=== PATIENT | female | born 1985 | race Caucasian/White ===

== ENCOUNTER 2017-07-11 05:32 | Emergency (ER) | payer OTHER ==
[~2017-07-11] VITALS: Ht 172.7 cm; Wt 79.8 kg
[2017-07-11 05:40] VITALS: BP 123/69
[2017-07-11] MEDS ORDERED: ERYT1OIN6 OP (05:46)
--- NOTE | 2017-07-11 05:46 | PHYS DOC ---
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 She is taking care. With colds, viruses and recent flu. She does not wear contact lenses and feels no pain in the eye she has had some drainage and mucous discharge along with a slight itching sensation. She denies any photophobia, recent trauma to her eye. She does admit she's had recent cold with runny nose mild sore throat and cough no ear pain no rash on her face. She wears corrective lenses and has had no change in visual acuity Review of Systems Review of Systems Constitutional: Denies fever or chills [] Eyes: Denies change in visual acuity, or pain but is having some slight redness and discharge HENT: She is having some nasal congestion and a mild sore throat with no change in voice Respiratory: She is having a mild cough and no shortness of breath Integument: Denies rash or skin lesions [] Neurologic: Denies headache, All other systems were reviewed and found to be within normal limits, except as documented in this note. Allergies Allergies Allergies Coded Allergies Type Severity Reaction Last Updated Verified ceftriaxone Allergy Unknown 04/20/14 No Physical Exam Physical Exam Vital signs recorded on the chart within normal limits Constitutional: Well developed, well nourished, no acute distress, non-toxic appearance. [] HENT: Normocephalic, atraumatic, bilateral external ears normal, oropharynx moist, no oral exudates but she does have mild erythema, nose normal. [] Eyes: PERRLA, EOMI, conjunctiva injected on the right, no. Limbic injection slight thin mucoid discharge. [] Neck: Normal range of motion, no tenderness, supple, no stridor. [] Cardiovascular:Heart rate regular rhythm, no murmur [] Lungs & Thorax: Bilateral breath sounds clear to auscultation [] Skin: Warm, dry, no erythema, no rash. [] Neurologic: Alert and oriented X 3, EKG EKG [] Radiology/Procedures Radiology/Procedures [] Course & Med Decision Making Course & Med Decision Making Pertinent Labs and Imaging studies reviewed. (See chart for details) Presents with URI-like symptoms and a discharge from her eye she does not wear contact lenses there is no risk for foreign body sensation, there is no evidence of trauma to her eye itself. 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 I'm okay with this as she is competent and only to return if her symptoms continue. She'll be prescribed erythromycin ointment and follow-up with her supervisor advice. []Visual acuity is recorded on chart unremarkable Dragon Disclaimer Dragon Disclaimer This electronic medical record was generated, in whole or in part, using a voice recognition dictation system. Departure Departure: Impression: Primary Impression: Conjunctivitis Disposition: HOME, SELF-CARE Condition: STABLE Referrals: CHRISTA EVERETT MD (PCP) Patient Instructions: Conjunctivitis (Viral and Bacterial) Additional Instructions: discharge: I've spoken with the patient and/or caregivers. I've explained the patient's condition, diagnosis and treatment plan based on information available to me at this time. I've answered the patient's and/or caregivers questions and addressed any concerns. The patient and/or caregivers have a good understanding the patient's diagnosis, condition and treatment plan as can be expected at this point. Vital signs have been stabilized. The patient's condition is stable for discharge from the emergency department. The patient will pursue further outpatient evaluation with her primary care provider or other designated consulting physician as outlined in the discharge instructions. Patient and/or caregivers are agreeable to this plan of care and follow-up instructions have been explained in detail. The patient and/or caregivers have received these instructions in written format and expressed understanding of these discharge instructions. The patient and her caregivers are aware that if any significant change in condition or worsening of symptoms should prompt him to immediately return to this of the closest emergency department. If an emergent department is not readily available I would encourage him to call 911. Scripts Erythromycin Base (Erythromycin) 1 Gm Oint...g. 1 GM OP TID for 5 Days, [facility] [place]: SIOMARA DE LA CRUZ MD 07/11/17 SIOMARA DE LA CRUZ MD Jul 11, 2017 05:46
[2017-07-11] MEDS ORDERED: ERYTHROMYCIN 0.5% OPHTH OINTMENT 1GM TUBE. ONE (05:48)
[2017-07-11] MEDS ORDERED: birth control pills (05:55)
[2017-07-11] MEDS ORDERED: ERYTHROMYCIN 0.5% OPHTH OINTMENT 1GM TUBE. OD ONE (06:00)
== END 2017-07-11 05:50 | disposition home or self-care (01) ==
LOC: ER 05:32
DX: H10.9 Unspecified conjunctivitis (principal); J02.9 Acute pharyngitis, unspecified; J45.909 Unspecified asthma, uncomplicated; Z88.8 Allergy status to other drugs, medicaments and biological substances
CPT/HCPCS: 99283

== ENCOUNTER → 2019-11-10 | Outpatient (CLI) | payer OTHER ==
[~2019-11-10] MED LIST: ERYT1OIN6 OP; birth control pills
== END | disposition home or self-care (01) ==
LOC: LAB 10:06
PROVIDERS: ATTEND Internal Medicine Cardiovascular Disease
DX: Z53.9 Procedure and treatment not carried out, unspecified reason (principal)
CPT/HCPCS: 87635

== ENCOUNTER → 2019-11-11 | Outpatient (CLI) | payer OTHER ==
[~2019-11-11] MED LIST changes: +HYDR25CA PO; +LORA10TA68 PO; +RIVA15TA PO
--- NOTE | 2019-11-13 17:59 | NUR ---
NURSING NOTE LAB RECEIVED CALL FROM DR NAIR TO NOTIFY PT OF POSITIVE COVID. NO PHONE NUMBER IN PT CHART. 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 PAT RIOS.
== END ==
LOC: LAB 22:40
PROVIDERS: ATTEND Internal Medicine Cardiovascular Disease
DX: R06.02 Shortness of breath (principal); Z20.828 Contact with and (suspected) exposure to other viral communicable diseases
CPT/HCPCS: 87635

== ENCOUNTER 2019-11-14 12:33 | Emergency (ER) | payer OTHER ==
[~2019-11-14] VITALS: Ht 172.7 cm; Wt 85.0 kg
[2019-11-14 12:33] VITALS: BP 134/72
[~2019-11-14 12:33] MED LIST changes: -HYDR25CA PO; -LORA10TA68 PO; -RIVA15TA PO
[2019-11-14] MEDS: IOHEXOL 350 MG/ML 100 ML VIAL. IV ONE (13:00)
[2019-11-14 13:08] LABS: CALCIUM 9.2 mg/dL (8.5-10.1); CREATININE 0.8 mg/dL (0.6-1.0); GFR 82.1; POTASSIUM 3.7 mmol/L (3.5-5.1)
[2019-11-14 13:09] LABS: BASO # 0.2 x10^3/uL (0.0-0.2); BASO % 3 % (0-3); EOS # 0.2 x10^3/uL (0.0-0.7); EOS % 2 % (0-3); HEMATOCRIT 43.3 % (36.0-47.0); HEMOGLOBIN 14.5 g/dL (12.0-15.5); LYMPH # 2.4 x10^3/uL (1.0-4.8); LYMPH % 28 % (24-48); MEAN CORPUSCULAR HEMOGLOBIN 29 pg (25-35); MEAN CORPUSCULAR HGB CONC 33 g/dL (31-37); MEAN CORPUSCULAR VOLUME 86 fL (79-100); MONO # 0.6 x10^3/uL (0.0-1.1); MONO % 7 % (0-9); NEUT # 5.2 x10^3uL (1.8-7.7); NEUT % 61 % (31-73); PLATELET COUNT 302 x10^3/uL (140-400); RED BLOOD COUNT 5.03 x10^6/uL (3.50-5.40); RED CELL DISTRIBUTION WIDTH 13.7 % (11.5-14.5); WHITE BLOOD COUNT 8.6 x10^3/uL (4.0-11.0)
[2019-11-14 13:13] LABS: ALBUMIN/GLOBULIN RATIO 1.1 (1.0-1.7); TOTAL BILIRUBIN 0.5 mg/dL (0.2-1.0); TOTAL PROTEIN 7.6 g/dL (6.4-8.2)
[2019-11-14] MEDS ORDERED: CONTRAST GIVEN MC PRN (13:15)
--- NOTE | 2019-11-14 13:57 | RAD ---
EXAM: CT Pulmonary Angiogram INDICATION: Shortness of breath. Covid 19 positive. TECHNIQUE: Multi-detector row images were acquired from the thoracic inlet through the upper abdomen with the use of IV contrast. Sagittal and coronal images were acquired from the transaxial data. MIP images of the pulmonary arteries were obtained. All CT scans performed at this facility utilize dose optimization techniques as appropriate to the exam, including the following: Automated exposure control and adjustment of the mA and/or KV according to patient size (this includes techniques or standardized protocols for targeted exams where dose is indication/reason for exam). IV CONTRAST: Administered COMPARISON: None FINDINGS: PULMONARY ARTERIES: No pulmonary emboli are identified. Contrast bolus timing is adequate. CARDIOVASCULAR: Unremarkable Aorta is normal caliber. MEDIASTINUM & LUDY: No adenopathy or masses. LUNGS: 3 mm peripheral right middle lobe pulmonary nodules (axial images 79 and 81 of series 4) are noted. Otherwise no pulmonary infiltrate, nodule, or other focal abnormality. PLEURAL SPACE: No pleural effusions or pneumothorax. OSSEOUS & SOFT TISSUE: Unremarkable ABDOMEN: The visualized portions of the upper abdomen are unremarkable. IMPRESSION: There are two sub-5 mm nodules in the right middle lobe. In a patient at low risk for malignancy, these do not require follow-up. In a patient at high risk for malignancy, an optional twelve-month follow-up CT could be pursued. Otherwise the exam is negative with no findings suspicious for pulmonary emboli. Electronically signed by: Shubham Suero MD (11/14/2019 1:54 PM) [id number]
--- NOTE | 2019-11-14 14:21 | PHYS DOC ---
Past History Past Medical History: Anxiety, Asthma Past Surgical History: No Surgical History Alcohol Use: Occasionally Drug Use: None General Adult EDM: Chief Complaint: SHORTNESS OF BREATH HPI: HPI: 34-year-old female presents with worsening shortness of breath and intermittent cough. The patient has confirmed COVID-19. 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 She has been having some upper chest tightness and is concerned about her worsening shortness of breath being a pulmonary embolus. She denies fever or chills. She has had no GI symptoms. Review of Systems: Review of Systems: Constitutional: Denies fever or chills Eyes: Denies change in visual acuity HENT: Denies nasal congestion or sore throat Respiratory: Cough with shortness of breath Cardiovascular: Chest pain GI: Denies abdominal pain, nausea, vomiting, bloody stools or diarrhea : Denies dysuria Musculoskeletal: Denies back pain or joint pain Integument: Denies rash Neurologic: Denies headache, focal weakness or sensory changes Endocrine: Denies polyuria or polydipsia Lymphatic: Denies swollen glands Psychiatric: Denies depression or anxiety Heart Score: Risk Factors: Risk Factors: DM, Current or recent (<one month) smoker, HTN, HLP, family history of CAD, obesity. Risk Scores: Score 0 - 3: 2.5% MACE over next 6 weeks - Discharge Home Score 4 - 6: 20.3% MACE over next 6 weeks - Admit for Clinical Observation Score 7 - 10: 72.7% MACE over next 6 weeks - Early Invasive Strategies Current Medications: Current Meds: Current Medications Medications (Trade) Dose Ordered Sig/Felix Start Time Stop Time Status Last Admin Dose Admin Info (Do NOT chart on this entry -- for MONITORING) 1 each PRN DAILY PRN 11/14/19 13:15 11/16/19 13:14 Iohexol (Omnipaque 350 Mg/ml) 100 ml 1X ONCE 11/14/19 13:00 11/14/19 13:01 DC Allergies: Allergies: Allergies Coded Allergies Type Severity Reaction Last Updated Verified ceftriaxone Allergy Unknown 04/20/14 No Physical Exam: PE: Constitutional: Well developed, well nourished, no acute distress, non-toxic appearance. [] HENT: Normocephalic, atraumatic, bilateral external ears normal, oropharynx moist, no oral exudates, nose normal. [] Eyes: PERRLA, EOMI, conjunctiva normal, no discharge. [] Neck: Normal range of motion, no tenderness, supple, no stridor. [] Cardiovascular: Heart rate regular rhythm, no murmur [] Lungs & Thorax: Bilateral breath sounds clear to auscultation [] Abdomen: Bowel sounds normal, soft, no tenderness, no masses, no pulsatile masses. [] Skin: Warm, dry, no erythema, no rash. [] Back: No tenderness, no CVA tenderness. [] Extremities: No tenderness, no cyanosis, no clubbing, ROM intact, no edema. [] Neurologic: Alert and oriented X 3, normal motor function, normal sensory function, no focal deficits noted. [] Psychologic: Affect normal, judgement normal, mood normal. [] Current Patient Data: Labs: Laboratory Tests Test 11/14/19 12:40 White Blood Count 8.6 x10^3/uL (4.0-11.0) Red Blood Count 5.03 x10^6/uL (3.50-5.40) Hemoglobin 14.5 g/dL (12.0-15.5) Hematocrit 43.3 % (36.0-47.0) Mean Corpuscular Volume 86 fL (79-100) Mean Corpuscular Hemoglobin 29 pg (25-35) Mean Corpuscular Hemoglobin Concent 33 g/dL (31-37) Red Cell Distribution Width 13.7 % (11.5-14.5) Platelet Count 302 x10^3/uL (140-400) Neutrophils (%) (Auto) 61 % (31-73) Lymphocytes (%) (Auto) 28 % (24-48) Monocytes (%) (Auto) 7 % (0-9) Eosinophils (%) (Auto) 2 % (0-3) Basophils (%) (Auto) 3 % (0-3) Neutrophils # (Auto) 5.2 x10^3uL (1.8-7.7) Lymphocytes # (Auto) 2.4 x10^3/uL (1.0-4.8) Monocytes # (Auto) 0.6 x10^3/uL (0.0-1.1) Eosinophils # (Auto) 0.2 x10^3/uL (0.0-0.7) Basophils # (Auto) 0.2 x10^3/uL (0.0-0.2) D-Dimer (Lorelei) 0.90 mg/L (0.00-0.50) H Sodium Level 139 mmol/L (136-145) Potassium Level 3.7 mmol/L (3.5-5.1) Chloride Level 103 mmol/L (98-107) Carbon Dioxide Level 26 mmol/L (21-32) Anion Gap 10 (6-14) Blood Urea Nitrogen 11 mg/dL (7-20) Creatinine 0.8 mg/dL (0.6-1.0) Estimated GFR (Cockcroft-Gault) 82.1 BUN/Creatinine Ratio 14 (6-20) Glucose Level 103 mg/dL (70-99) H Calcium Level 9.2 mg/dL (8.5-10.1) Total Bilirubin 0.5 mg/dL (0.2-1.0) Aspartate Amino Transferase (AST) 17 U/L (15-37) Alanine Aminotransferase (ALT) 33 U/L (14-59) Alkaline Phosphatase 50 U/L (46-116) Troponin I Quantitative < 0.017 ng/mL (0-0.055) Total Protein 7.6 g/dL (6.4-8.2) Albumin 4.0 g/dL (3.4-5.0) Albumin/Globulin Ratio 1.1 (1.0-1.7) Vital Signs: Vital Signs Date Time Temp Pulse Resp B/P (MAP) Pulse Ox O2 Delivery O2 Flow Rate FiO2 11/14/19 12:33 98.9 98 22 134/72 (92) 98 Room Air EKG: EKG: Sinus rhythm, rate 81, normal axis, no ST elevations or depressions, right bundle branch block. [] Radiology/Procedures: Radiology/Procedures: [] Impressions: EXAM: CT Pulmonary Angiogram INDICATION: Shortness of breath. Covid 19 positive. TECHNIQUE: Multi-detector row images were acquired from the thoracic inlet through the upper abdomen with the use of IV contrast. Sagittal and coronal images were acquired from the transaxial data. MIP images of the pulmonary arteries were obtained. All CT scans performed at this facility utilize dose optimization techniques as appropriate to the exam, including the following: Automated exposure control and adjustment of the mA and/or KV according to patient size (this includes techniques or standardized protocols for targeted exams where dose is indication/reason for exam). IV CONTRAST: Administered COMPARISON: None FINDINGS: PULMONARY ARTERIES: No pulmonary emboli are identified. Contrast bolus timing is adequate. CARDIOVASCULAR: Unremarkable Aorta is normal caliber. MEDIASTINUM & LUDY: No adenopathy or masses. LUNGS: 3 mm peripheral right middle lobe pulmonary nodules (axial images 79 and 81 of series 4) are noted. Otherwise no pulmonary infiltrate, nodule, or other focal abnormality. PLEURAL SPACE: No pleural effusions or pneumothorax. OSSEOUS & SOFT TISSUE: Unremarkable ABDOMEN: The visualized portions of the upper abdomen are unremarkable. IMPRESSION: There are two sub-5 mm nodules in the right middle lobe. In a patient at low risk for malignancy, these do not require follow-up. In a patient at high risk for malignancy, an optional twelve-month follow-up CT could be pursued. Otherwise the exam is negative with no findings suspicious for pulmonary emboli. Electronically signed by: Cesario Suero MD (11/14/2019 1:54 PM) [id number] DICTATED AND SIGNED BY: CESARIO SUERO MD DATE: 11/14/19 1354 CC: ALIRIO STARKS DO; PCP,NO ~ Course & Med Decision Making: Course & Med Decision Making The patient's labs are unremarkable except for an elevated d-dimer 0.9. Her CT of the chest shows 2 sub-5 mm nodules, but no pulmonary emboli. See official report for more details. The patient has COVID-19. She does not meet criteria for admission. She is stable for discharge at this time. Dragon Disclaimer: Dragkurtis Disclaimer: This electronic medical record was generated, in whole or in part, using a voice recognition dictation system. Departure Departure: Impression: Primary Impression: COVID-19 virus detected Disposition: HOME, SELF-CARE Condition: STABLE Referrals: PCP,NO (PCP) Patient Instructions: Shortness of Breath, [id number] ALIRIO STARKS DO November 14, 2019 14:21
--- NOTE | 2019-11-14 15:51 | EKG ---
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
== END 2019-11-14 14:35 | disposition home or self-care (01) ==
LOC: ER 12:33
DX: U07.1 COVID-19 (principal); R06.02 Shortness of breath; R05 Cough; R07.89 Other chest pain; F41.9 Anxiety disorder, unspecified; J45.909 Unspecified asthma, uncomplicated
CPT/HCPCS: 36415; 71275; 80053; 84484; 85025; 85379; 93005; 99285; Q9967

== ENCOUNTER 2019-11-18 23:43 | Emergency (ER) | payer OTHER ==
[~2019-11-18] VITALS: Ht 172.7 cm; Wt 85.0 kg
[2019-11-18 23:48] VITALS: BP 132/85
--- NOTE | 2019-11-19 00:30 | PHYS DOC ---
Past History Past Medical History: Anxiety, Asthma Past Surgical History: Other Additional Past Surgical Histo: wisdom teeth extraction Smoking: Non-smoker Alcohol Use: Occasionally Drug Use: None General Adult EDM: Chief Complaint: SHORTNESS OF BREATH HPI: HPI: 34-year-old female presents with report of increased shortness of breath with bilateral arm and leg tingling, dizziness, and burning feeling in her lungs. Patient tested positive for COVID-19 approximately 10 days ago. Patient does report history of anxiety. Denies fever and chills. Denies trauma. Denies leg swelling or calf tenderness. Reports her heart rate also increases when she gets up. Reports heart rate has gotten up to 120s. Reports home O2 sats have been consistently 96-98% on RA. Reports history of asthma but denies increased wheezing. Review of Systems: Review of Systems: Constitutional: Denies fever or chills Eyes: Denies redness or eye pain HENT: Denies nasal congestion or sore throat Respiratory: Reports cough and shortness of breath Cardiovascular: Denies chest pain or palpitations GI: Denies abdominal pain, nausea, or vomiting : Denies dysuria or hematuria Musculoskeletal: Denies back pain or joint pain Integument: Denies rash or skin lesions Neurologic: Denies headache, focal weakness or sensory changes; reports dizziness and numbness in bilateral upper and lower extremities Complete systems were reviewed and found to be within normal limits, except as documented in this note. Allergies: Allergies: Allergies Coded Allergies Type Severity Reaction Last Updated Verified ceftriaxone Allergy Unknown 04/20/14 No Physical Exam: PE: Constitutional: Well developed, well nourished, anxious, non-toxic appearance HENT: Normocephalic, atraumatic Eyes: Conjunctiva normal, no discharge Neck: Normal range of motion, no tenderness, supple Cardiovascular: Heart rate normal, regular rhythm Lungs & Thorax: No respiratory distress, equal chest rise and fall Abdomen: Soft, no tenderness Skin: Warm, dry, no erythema, no rash Back: No tenderness, no CVA tenderness Extremities: No tenderness, ROM intact, no edema Neurologic: Alert and oriented X 3, no focal deficits noted Psychologic: Affect anxious, judgment normal Current Patient Data: Vital Signs: Vital Signs Date Time Temp Pulse Resp B/P (MAP) Pulse Ox O2 Delivery O2 Flow Rate FiO2 11/18/19 23:48 97.8 88 20 132/85 (101) 98 Room Air EKG: EKG: [] Radiology/Procedures: Radiology/Procedures: PROCEDURE: CHEST AP ONLY CHEST AP ONLY Clinical History: Dyspnea Technique: AP view of the chest was obtained at 11/18/2019 11:56 PM. Comparison: None. Findings: The cardiomediastinal silhouette is normal. The pulmonary vasculature is normal. The lungs and pleural margins are clear. Impression: No evidence of an acute cardiopulmonary process. Electronically signed by: Dejuan Perales III, MD (11/19/2019 12:28 AM) [id number] Course & Med Decision Making: Course & Med Decision Making Pertinent Imaging studies reviewed. (See chart for details) Patient who has previously tested positive for COVID19 presents with report of shortness of air as well as dizziness, tachycardia, and tingling in bilateral upper extremities and legs. Patient does have a history of anxiety. Patient does appear anxious on physical exam. No respiratory distress appreciated. Telemetry monitoring appears normal. Oxygen saturation also normal on room air. Chest x-ray without acute process. Discussed patient that symptoms more likely COVID-19 combined with anxiety. No treatment currently recommended except supportive care. Patient asked if she felt she needed to be admitted for further observation. Patient declined. Patient stable for discharge with outpatient follow-up with PCP. A MDI spacer and Incentive Spirometer provided. Discussed findings and plan with patient, who acknowledges understanding and agreement. COVID-19 CRITERIA: The patient was evaluated during the global COVID-19 pandemic, and that diagnosis was suspected/considered upon their initial presentation. Their evaluation, treatment and testing was consistent with current guidelines for patients who present with complaints or symptoms that may be related to COVID-19. Monica Disclaimer: Monica Disclaimer: This electronic medical record was generated, in whole or in part, using a voice recognition dictation system. Departure Departure: Impression: Primary Impression: COVID-19 virus infection Additional Impression: Anxiety Disposition: 01 HOME, SELF-CARE Condition: STABLE Referrals: PCP,NO (PCP) Patient Instructions: Anxiety and Panic Attacks, [id number], Incentive Spirometer, Viral Syndrome COVID-19 Assessment COVID-19 Patient Risks: Age 65 or older: No Sign of co-morbidity: Yes Exp to person + for COVID: Yes Exp to PUI: No Travel from affected area: No Lower respiratory symptoms: Yes Fever: No Other: No PPE Use: Full PPE with N95 mask or PAPR: Yes SESAR PINEDA DO November 19, 2019 00:30
== END 2019-11-19 00:45 | disposition home or self-care (01) ==
LOC: ER 23:43
DX: U07.1 COVID-19 (principal); F41.9 Anxiety disorder, unspecified; J45.909 Unspecified asthma, uncomplicated; Z88.8 Allergy status to other drugs, medicaments and biological substances
CPT/HCPCS: 71045; 99283

== ENCOUNTER → 2019-12-05 | Outpatient (CLI) | payer OTHER ==
[2019-11-18 23:48] VITALS: BP 132/85
== END | disposition home or self-care (01) ==
LOC: LAB 15:04
PROVIDERS: ATTEND Internal Medicine Cardiovascular Disease
DX: R50.9 Fever, unspecified (principal); R05 Cough; R06.02 Shortness of breath; Z20.828 Contact with and (suspected) exposure to other viral communicable diseases
CPT/HCPCS: C9803; U0003

== ENCOUNTER → 2019-12-07 | Outpatient (CLI) | payer OTHER ==
[2019-11-18 23:48] VITALS: BP 132/85
== END | disposition home or self-care (01) ==
LOC: LAB 11:11
PROVIDERS: ATTEND Internal Medicine Cardiovascular Disease
DX: R05 Cough (principal); R06.02 Shortness of breath; Z20.828 Contact with and (suspected) exposure to other viral communicable diseases
CPT/HCPCS: C9803; U0003

== ENCOUNTER 2020-01-21 03:12 | Inpatient (IN) | payer OTHER ==
[~2020-01-21] VITALS: Ht 172.7 cm; Wt 88.3 kg
--- NOTE | 2020-01-21 03:15 | PHYS DOC ---
Past History Past Medical History: Anxiety, Asthma (KYLEIGH HICKS MD) Past Surgical History: Other Additional Past Surgical Histo: wisdom teeth extraction (KYLEIGH HICKS MD) Smoking: Non-smoker Alcohol Use: Occasionally Drug Use: None (KYLEIGH HICKS MD) General Adult HPI: HPI: ".. I ve been short of breath ever since my COVID.. but.. I was negative in November.. x 2,,.. and have been back to work... but still having a lot of wheezes... The MDI did help.. when I was treating the COVID.. usually do not have to have treatment for my Asthma...it however seem worse the last couple days... I ve been coughing a lot more at work tonight..some increase of my low lumbar back pain... just not feeling right... 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 Patient localized pain or discomfort in upper chest and Lumbar sacral area. Pt. has had increase of her cough that has been nonproductive. The patient recently recovered from COVID infection and has return to work. Pt. has hx. of Asthma and Anxiety previous to COVID diagnosis in November. Pt. did have findings of Rt. middle lobe nodules CT completed on November 13 ED evaluation. Pt. Denies any recent travel out side of [place] area. No specific ill contacts out side of work environment.. (KYLEIGH HICKS MD) Review of Systems: Review of Systems: Constitutional: Denies fever or chills Eyes: Denies change in visual acuity HENT: Denies nasal congestion or sore throat Respiratory: Complaints of cough and shortness of breath Cardiovascular: Complaints of chest pain GI: Denies abdominal pain, nausea, vomiting, bloody stools or diarrhea : Denies dysuria Musculoskeletal: Lumbar sacral back pain or joint pain Integument: Denies rash Neurologic: Denies headache, focal weakness or sensory changes Endocrine: Denies polyuria or polydipsia Lymphatic: Denies swollen glands Psychiatric: Complaints of anxiety (KYLEIGH HICKS MD) Heart Score: HEART Score for Chest Pain: HEART Score for Chest Pain Response (Comments) Value History Slighlty/Non-Suspicious 0 ECG Normal 0 Age < 45 0 Risk Factors 1 or 2 Risk Factors 1 Troponin < Normal Limit 0 Total 1 Risk Factors: Risk Factors: DM, Current or recent (<one month) smoker, HTN, HLP, family history of CAD, obesity. Risk Scores: Score 0 - 3: 2.5% MACE over next 6 weeks - Discharge Home Score 4 - 6: 20.3% MACE over next 6 weeks - Admit for Clinical Observation Score 7 - 10: 72.7% MACE over next 6 weeks - Early Invasive Strategies (KYLEIGH HICKS MD) Family History: Family History: Family history of diabetes, hypertension, family history of early onset of coronary artery disease, (KYLEIGH HICKS MD) Current Medications: Current Meds: See nursing for home meds (KYLEIGH HICKS MD) Allergies: Allergies: Allergies Coded Allergies Type Severity Reaction Last Updated Verified ceftriaxone Allergy Unknown 04/20/14 No (KYLEIGH HICKS MD) Physical Exam: PE: Constitutional: moderate acute emotional distress, non-toxic appearance. [] HENT: Normocephalic, atraumatic, bilateral external ears normal, oropharynx moist, no oral exudates, nose normal. [] Eyes: PERRLA, EOMI, conjunctiva normal, no discharge.glasses. Neck: Normal range of motion, no tenderness, supple, no stridor. [] Cardiovascular: Tachycardia heart rate regular rhythm, no murmur [] Lungs & Thorax: Bilateral breath sounds equal apex with scattered wheezes on auscultation [] Abdomen: Bowel sounds normal, soft, no tenderness, no masses, no pulsatile masses. [] Skin: Warm, dry, no erythema, no rash. [] Back: Lower lumbar tenderness, no CVA tenderness. [] Extremities: No tenderness, no cyanosis, no clubbing, ROM intact, no edema. No cording appreciated Neurologic: Alert and oriented X 3, normal motor function, normal sensory function, no focal deficits noted. [] Psychologic: Affect anxious, judgement normal, mood normal. [] (KYLEIGH HICKS MD) EKG: EKG: My interpretation EKG shows a sinus rhythm at 95 bpm. No findings of acute STEMI of contralateral changes. [] (KLYEIGH HICKS MD) Radiology/Procedures: Radiology/Procedures: [][address] [id number] IMAGING REPORT Signed PATIENT: TAMRA BUTLER ACCOUNT: [id number] : 1985 LOCATION: ER AGE: 34 SEX: F EXAM STATUS: REG ER ORD. PHYSICIAN: KYLEIGH HICKS MD REASON: DYSPNEA PROCEDURE: CHEST PA & LATERAL PA and lateral chest radiographs 01/21/2020 CLINICAL HISTORY: Shortness of breath. PA and lateral digital radiographs of the chest were obtained. Comparison study is dated 11/18/2019. The cardiac and mediastinal silhouettes are within normal limits in size and configuration. No acute pulmonary infiltrate is seen. No pleural effusion or pneumothorax is noted. Very mild S-shaped curvature of the thoracolumbar spine is seen. IMPRESSION: No acute abnormality is seen. Electronically signed by: Grady Palma MD (01/21/2020 6:47 AM) [id number] DICTATED AND SIGNED BY: GRADY PALMA MD DATE: 01/21/20 0647 CC: KYLEIGH HICKS MD; PCP,NO; ADRYAN SINGH DO ~ CT pending at shift change. (KYLEIGH HICKS MD) Radiology/Procedures: [address] [address] IMAGING REPORT Signed PATIENT: TAMRA BUTLER ACCOUNT: [id number] : 1985 LOCATION: ER AGE: 34 SEX: F EXAM STATUS: REG ER ORD. PHYSICIAN: KYLEIGH HICKS MD REASON: dyspnea, cough, hx. + COVID, Convert . Neg. May, OMNI 350, 75ml PROCEDURE: CT ANGIOGRAPHY CHEST CTA chest with and without contrast 01/21/2020. Reason for exam: Dyspnea and cough. Positive Covid test. Helical thin section images were made through the chest using an infusion of 75 mL Omnipaque 350. MIP reconstructions were performed. Exposure: One or more of the following individualized dose reduction techniques were utilized for this examination: 1. Automated exposure control 2. Adjustment of the mA and/or kV according to patient size 3. Use of iterative reconstruction technique. Comparison is made with a study of 11/14/2019. FINDINGS: Tiny nodular opacities in the right lung remains stable. No significant pulmonary parenchymal abnormality is seen. The central airways appear normal. No enlarged lymph nodes are seen. Evaluation of the pulmonary arterial tree shows evidence of a small clot within a posterior segmental branch of the right upper lobe (image 47 of axial series 4) this is not apparent previously. No other abnormal filling defect is seen. Images through the upper abdomen show no abnormality. IMPRESSION: There are findings likely indicating isolated subsegmental PE in the right upper lobe, as described above. FOR INTERNAL CODING PURPOSES Critical result: Findings discussed with Dr. Singh at 01/21/2020 7:33 AM. RESULT CODE: (C) Electronically signed by: Astrid Robertson Jr., MD (01/21/2020 7:34 AM) [id number] DICTATED AND SIGNED BY: ASTRID ROBERTSON Jr, MD DATE: 01/21/20 0734 CC: KYLEIGH HICKS MD; PCP,NO; ADRYAN SINGH DO ~ (ADRYAN SINGH DO) Course & Med Decision Making: Course & Med Decision Making Pertinent Labs and Imaging studies reviewed. (See chart for details) Patient having persistent reactive airway issues since her diagnosis of COVID. Patient also expressing anxious anxiety issues when she returns to work each day. May have a component of PTSD-due to her experience of the COVID illness. Dr. Singh- will make disposition of pt. CT on patient is currently pending. Impression: 1. Dyspnea 2. Cough- Nonproductive 3. Hx. COVID - Neg repeat testing in November x 2 4. Asthma/ Reactive Airway 5. Anxiety 6. PTSD? .. Recent COVID Illness 7. Mild Hypokalemia 3.3 8. Minimal elevation d-dimer 0.54 9. Concern for hypercoagulable state-secondary to her prior COVID infection ( Will get CT) [] (KYLEIGH HICKS MD) Dragon Disclaimer: Dragon Disclaimer: This electronic medical record was generated, in whole or in part, using a voice recognition dictation system. (KYLEIGH HICKS MD) Departure Departure: Impression: Primary Impression: Pulmonary emboli Disposition: ADMITTED INPATIENT Admitting Physician: Jonathan Barrett (ADRYAN SINGH DO) Condition: STABLE Referrals: PCP,NO (PCP) Justification of Admission: Justification of Admission: Justification of Admission Dx: Yes Comments: Dyspnea- CT pending to r/o PE (KYLEIGH HICKS MD) Justification of Admission Dx: N/A (ADRYAN SINGH DO) Dragon Disclaimer This chart was dictated in whole or in part using Voice Recognition software in a busy, high-work load, and often noisy Emergency Department environment. It may contain unintended and wholly unrecognized errors or omissions. (KYLEIGH HICKS MD) KYLEIGH HICKS MD Jan 21, 2020 03:15 ADRYAN SINGH DO Jan 21, 2020 08:23
[2020-01-21] MEDS ORDERED: ASPIRIN CHEWABLE 81 MG TABLET. PO ONE (03:30)
[2020-01-21] MEDS ORDERED: IV RINGERS SOLUTION,LACTATED 1,000 ML IV SCH (03:30)
--- NOTE | 2020-01-21 03:36 | EKG ---
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
[2020-01-21] MEDS ORDERED: ALBUTEROL SULFATE 8GM INHALER. INH ONE (03:45)
[2020-01-21 04:41] LABS: CLARITY,URINE CLEAR; COLOR,URINE STRAW
[2020-01-21 04:42] LABS: BACTERIA,URINE FEW /HPF (0-FEW); BILIRUBIN,URINE NEG (NEG); GLUCOSE,URINE NEG (NEG); NITRITE,URINE NEG (NEG); RBC,URINE 0 /HPF (0-2); SQUAMOUS EPITHELIAL CELL,UR OCC /LPF; UROBILINOGEN,URINE 0.2 mg/dL (0.2 mg/dL); WBC,URINE 0 /HPF (0-4)
[2020-01-21 04:43] LABS: BASO # 0.1 x10^3/uL (0.0-0.2); BASO % 1 % (0-3); EOS # 0.2 x10^3/uL (0.0-0.7); EOS % 2 % (0-3); HEMATOCRIT 38.9 % (36.0-47.0); HEMOGLOBIN 13.1 g/dL (12.0-15.5); LYMPH # 2.6 x10^3/uL (1.0-4.8); LYMPH % 31 % (24-48); MEAN CORPUSCULAR HEMOGLOBIN 29 pg (25-35); MEAN CORPUSCULAR HGB CONC 34 g/dL (31-37); MEAN CORPUSCULAR VOLUME 86 fL (79-100); MONO # 0.7 x10^3/uL (0.0-1.1); MONO % 9 % (0-9); NEUT # 4.9 x10^3uL (1.8-7.7); NEUT % 57 % (31-73); PLATELET COUNT 250 x10^3/uL (140-400); RED BLOOD COUNT 4.53 x10^6/uL (3.50-5.40); RED CELL DISTRIBUTION WIDTH 13.1 % (11.5-14.5); WHITE BLOOD COUNT 8.5 x10^3/uL (4.0-11.0)
[2020-01-21 04:56] LABS: ALBUMIN 3.8 g/dL (3.4-5.0); CALCIUM 9.1 mg/dL (8.5-10.1); CREATININE 1.1 mg/dL (0.6-1.0); DIRECT BILIRUBIN 0.2 mg/dL (0.0-0.2); GFR 56.9; POTASSIUM 3.3 mmol/L (3.5-5.1); TOTAL BILIRUBIN 0.6 mg/dL (0.2-1.0); TOTAL PROTEIN 7.4 g/dL (6.4-8.2)
[2020-01-21 04:57] LABS: MAGNESIUM 1.9 mg/dL (1.8-2.4)
[2020-01-21] MEDS ORDERED: CONTRAST GIVEN MC PRN (06:15)
[2020-01-21] MEDS ORDERED: IOHEXOL 350 MG/ML 100 ML VIAL. IV ONE (06:15)
--- NOTE | 2020-01-21 06:50 | RAD ---
PA and lateral chest radiographs 01/21/2020 CLINICAL HISTORY: Shortness of breath. PA and lateral digital radiographs of the chest were obtained. Comparison study is dated 11/18/2019. The cardiac and mediastinal silhouettes are within normal limits in size and configuration. No acute pulmonary infiltrate is seen. No pleural effusion or pneumothorax is noted. Very mild S-shaped curvature of the thoracolumbar spine is seen. IMPRESSION: No acute abnormality is seen. Electronically signed by: Grady Palma MD (01/21/2020 6:47 AM) [id number]
[2020-01-21] MEDS ORDERED: IV NORMAL SALINE 1,000ML 1,000 ML IV ONE (07:30)
[2020-01-21] MEDS ORDERED: POTASSIUM CHLORIDE 20 MEQ TABLET.ER. PO ONE (07:30)
[2020-01-21] MEDS ORDERED: HYDR25CA PO (07:31)
[2020-01-21] MEDS ORDERED: LORA10TA68 PO (07:31)
--- NOTE | 2020-01-21 07:36 | RAD ---
CTA chest with and without contrast 01/21/2020. Reason for exam: Dyspnea and cough. Positive Covid test. Helical thin section images were made through the chest using an infusion of 75 mL Omnipaque 350. MIP reconstructions were performed. Exposure: One or more of the following individualized dose reduction techniques were utilized for this examination: 1. Automated exposure control 2. Adjustment of the mA and/or kV according to patient size 3. Use of iterative reconstruction technique. Comparison is made with a study of 11/14/2019. FINDINGS: Tiny nodular opacities in the right lung remains stable. No significant pulmonary parenchymal abnormality is seen. The central airways appear normal. No enlarged lymph nodes are seen. Evaluation of the pulmonary arterial tree shows evidence of a small clot within a posterior segmental branch of the right upper lobe (image 47 of axial series 4) this is not apparent previously. No other abnormal filling defect is seen. Images through the upper abdomen show no abnormality. IMPRESSION: There are findings likely indicating isolated subsegmental PE in the right upper lobe, as described above. FOR INTERNAL CODING PURPOSES Critical result: Findings discussed with Dr. Luna at 01/21/2020 7:33 AM. RESULT CODE: (C) Electronically signed by: Doroteo Robertson Jr., MD (01/21/2020 7:34 AM) [id number]
[2020-01-21] MEDS ORDERED: ENOXAPARIN ** NOTE DOSE ** SYRINGE SQ ONE (07:45)
--- NOTE | 2020-01-21 09:00 | NUR ---
The patient, TAMRA BUTLER, 34 y/o, F admitted by ANDREI NAIR MD, was given written information regarding hospital policies, unit procedures and contact persons. Pt ambulated to bed ICU [address] and was met by dr. NAIR on admission. Plans discussed with pt and nurse while DR. NAIR at bedside. Valuables were checked and left with patient at time of admission. Pt is SOB at rest. Pt's oxygen saturation is 98% on RA. Orders placed for inhaler and home meds continued.Will CTM.
[2020-01-21 09:51] VITALS: BP 117/71
[2020-01-21 10:26] LABS: THYROID STIM HORMONE (TSH) 2.352 uIU/mL (0.358-3.740)
[2020-01-21] MEDS ORDERED: hydrOXYzine PAMOATE 25 MG CAPSULE PO PRN (10:45)
[2020-01-21] MEDS ORDERED: ACETAMINOPHEN 500 MG TABLET PO PRN (10:45)
--- NOTE | 2020-01-21 10:58 | HP ---
ADMIT DATE: 01/21/2020 ATTENDING PHYSICIAN: Arnold. CHIEF COMPLAINT: Shortness of breath. 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 She is admitted to the ED with increasing shortness of breath, left sided with onset of diffuse chest pain and discomfort. She had a workup in the ED. Spiral CT showed evidence of small pulmonary emboli in the posterior segment of the right upper lobe. There are some nodules located in the right middle lobe. The patient 2 months ago had a positive swab for COVID-19 coronavirus. She was not hospitalized. She has been back to work since. She was given a dose of Xarelto. She was brought in for overnight observation. PAST MEDICAL HISTORY: Significant for the COVID-19 infection in November of this year. It has been little over 2 months. I explained to her there is a definite correlation with hypercoagulable state and the COVID-19 coronavirus infection. She denied any recent trauma, car rides or prolonged bed rest. Her other medical history includes a history of asthma. She is a nonsmoker. She has had a wisdom tooth extracted. She has seasonal allergies. CURRENT MEDICINES: Include Claritin, albuterol and Vistaril p.r.n. ALLERGIES: She has allergies to CEFTRIAXONE. Exact reaction is unclear. SOCIAL HISTORY: No smoking or drinking history as noted. FAMILY HISTORY: Mom has a history of heart disease. She is age 65. Father is healthy at age 68. She is . She has 2 young children, ages 6 and 8 respectively. 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 REVIEW OF SYSTEMS: Significant for the COVID-19 infection 2 months ago. She has had occasional asthma. She is exposed to some secondhand cigarette smoke. She denied any fevers, chills, cough, congestion. All other systems reviewed and determined to be negative. PHYSICAL EXAMINATION: GENERAL: When I saw her, this is a pleasant young female. INITIAL VITAL SIGNS: Showed a blood pressure of 111/61 mmHg, pulse of 76 and regular. She is afebrile and oxygen saturation 100% on room air. HEENT: Head is without trauma. Pupils are reactive. Sclerae nonicteric. Oropharynx is clear. NECK: Supple, no bruits identified. LUNGS: Otherwise, clear to auscultation. I do not appreciate any wheezing or rales. CARDIOVASCULAR: Showed distant heart sounds. No gallops. Peripheral pulses are palpable and full. ABDOMEN: Soft, scaphoid, nontender, no organomegaly. Bowel sounds are hypoactive. EXTREMITIES: Showed no cyanosis or edema. NEUROLOGIC: Focally intact. SKIN: Warm and dry. LABORATORY DATA: Hemoglobin is 13.1 g/dL with white count of 8500. Electrolytes are within normal range. Potassium slightly diminished at 3.3 mEq. Lactic acid is normal. Troponin level was unremarkable. CT angiogram as noted. ASSESSMENT: 1. A 34-year-old female with acute right upper lobe pulmonary emboli. 2. Hypercoagulable state due to recent COVID-19 coronavirus infection. 3. History of asthma. PLAN: 1. Observation status. 2. She was given a dose of Lovenox in the ED. 3. Xarelto 15 mg b.i.d. started today. I recommended 6 months' duration. 4. Continue home meds. ANDREI NAIR MD DR: SANTO/fredrick JOB#: [id number] / [id number] ROCHELLE Heck
[2020-01-21] MEDS ORDERED: CETIRIZINE HCL 10 MG TABLET PO SCH (11:30)
[2020-01-21] MEDS: RIVAROXABAN 15 MG TABLET. PO SCH ×2 (11:42→18:30)
[2020-01-21] MEDS ORDERED: ALBUTEROL SULFATE 8GM INHALER. INH PRN (11:45)
[2020-01-21 15:00] VITALS: BP 107/67
--- NOTE | 2020-01-21 20:36 | NUR ---
Discharge Summary Faxed to next level of care provider. Faxed to: [].
[2020-01-21] MEDS ORDERED: RIVA15TA PO ×2 (20:40→20:41)
--- NOTE | 2020-01-21 20:59 | NUR ---
Patient discharged via ambulation, transported to ED parking lot by security. Patient verbalizes understanding of discharge instructions.
--- NOTE | 2020-01-22 08:39 | DS ---
DATE OF DISCHARGE: 01/21/2020 ATTENDING PHYSICIAN: Dr. Nair. FINAL DISCHARGE DIAGNOSES: 1. Pulmonary emboli segment posterior segment right upper lobe. 2. Hypercoagulable state due to recent COVID-19 coronavirus infection. 3. History of asthma. 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 She was diagnosed with COVID-19 coronavirus on 11/13/2019. She did not need to be hospitalized. She did not have any pulmonary issues, then she recovered and was back to work. She had recent 2-day history of increasing shortness of breath and some chest discomfort. In the ED, she had a spiral CT of the chest, which showed a small clot in the posterior segment of the right upper lobe. There are also some residual lymph nodes that are still noticeable in the right middle lobe. She was admitted for further treatment and evaluation. PHYSICAL EXAMINATION: Please see the dictated note. PERTINENT LABORATORY AND X-RAY STUDIES: CT angiogram showed tiny nodular opacities in the right lung remained stable. There is evidence of a small clot within the posterior segmental branch of the right upper lobe. Her laboratory studies showed a normal hemoglobin of 13.1 g/dL with white count of 8500. Chemistry panel: BUN and creatinine, electrolytes were within normal range. Her potassium is 3.3. This will be followed up as an outpatient. Her transaminases, cholesterol levels are unremarkable. COURSE IN THE HOSPITAL: The patient was admitted overnight. She was given a dose of Lovenox. She was started on Xarelto 15 mg p.o. b.i.d. for 3 weeks followed by 20 mg daily thereafter for 6 months. She will follow up with her regular physician. She felt well. She wanted to go home. She was discharged then from our hospital in stable condition with explicit instructions and followup care. ANDREI NAIR MD DR: SANTO/fredrick JOB#: [id number] / [id number] ROCHELLE Heck
[2020-01-22] MEDS ORDERED: CETIRIZINE HCL 10 MG TABLET PO SCH (09:00)
== END 2020-01-21 20:55 | disposition home or self-care (01) | DRG 176 ==
LOC: ER 03:12 → ICU 08:18
PROVIDERS: ADMIT Hospitalist; ATTEND Hospitalist
DX: I26.99 Other pulmonary embolism without acute cor pulmonale (principal); J45.909 Unspecified asthma, uncomplicated; E87.6 Hypokalemia; F41.9 Anxiety disorder, unspecified; Z20.828 Contact with and (suspected) exposure to other viral communicable diseases; Z88.8 Allergy status to other drugs, medicaments and biological substances; Z79.899 Other long term (current) drug therapy
CPT/HCPCS: 36415; 71046; 71275; 80048; 80061; 80076; 81001; 81025; 82550; 83605; 83690; 83735; 83880; 84443; 84484; 85025; 85379; 85610; 85730; 87040; 93005; 94640; J1650; J7120; J7613; Q0177; Q9967; 94664; J7030; U0003-CS

== ENCOUNTER → 2020-03-14 | Outpatient (CLI) | payer OTHER ==
[~2020-03-14] MED LIST changes: +HYDR25CA PO; +LORA10TA68 PO; +RIVA15TA PO
== END | disposition home or self-care (01) ==
LOC: EEVIPCON → LAB 09:41
PROVIDERS: ATTEND Internal Medicine Cardiovascular Disease
DX: J45.909 Unspecified asthma, uncomplicated (principal); Z20.828 Contact with and (suspected) exposure to other viral communicable diseases
CPT/HCPCS: U0003-CS

== ENCOUNTER → 2021-07-28 | Outpatient (CLI) | payer OTHER | LOC: LAB 23:37 | PROVIDERS: ATTEND Internal Medicine Cardiovascular Disease | DX: R51.9 Headache, unspecified (principal); R09.81 Nasal congestion; R53.81 Other malaise; J02.9 Acute pharyngitis, unspecified; Z20.822 Contact with and (suspected) exposure to COVID-19 | CPT/HCPCS: U0003 ==